=== PATIENT | male | born 1935 | race Caucasian/White ===

== ENCOUNTER → 2018-06-11 | Outpatient (REF) | payer MEDICARE, OTHER ==
[2018-06-11 07:54] LABS: URINE BILIRUBIN - DIPSTICK NEGATIVE (NEGATIVE); URINE BLOOD DIPSTICK TRACE-LYSED (NEGATIVE); URINE COLOR YELLOW; URINE GLUCOSE - DIPSTICK NEGATIVE (NEGATIVE); URINE KETONE NEGATIVE (NEGATIVE); URINE LEUK ESTERASE NEGATIVE (NEGATIVE); URINE NITRITE - DIPSTICK NEGATIVE (Negative); URINE PROTEIN - DIPSTICK NEGATIVE (NEG-TRACE); URINE SPECIFIC GRAVITY <=1.005; URINE UROBILINOGEN - DIPSTICK 0.2 E.U./dL (0.2)
[2018-06-11 07:57] LABS: HEMATOCRIT 47.8 % (39.0-50.0); HEMOGLOBIN 15.8 g/dl (14.0-18.0); IMMATURE GRANULOCYTES 0.9 % (0.0-5.0); MEAN CELL VOLUME 92.8 fL CALC (80.0-100.0); MEAN CORPUSCULAR HGB 30.7 pG CALC (26.0-32.0); MEAN CORPUSCULAR HGB CONC 33.1 g/L CALC (32.0-36.0); NEUT# 4.76 thou/uL (1.82-7.42); RED BLOOD COUNT 5.15 mill/uL (4.70-6.10); RED CELL DISTRI WIDTH 13.2 % (11.5-15.5)
[2018-06-11 08:48] LABS: ALKALINE PHOSPHATASE 72 u/l (38-126); ANION GAP 12 (6-22 (CALC)); BILIRUBIN, TOTAL 0.6 mg/dL (0.0-1.4); BUN 18 mg/dL (8-23); BUN/CREATININE RATIO 14 (12-20 (CALC)); CARBON DIOXIDE 30 mmol/l (22-30); CHLORIDE 100 mmol/l (95-108); CREATININE 1.3 mg/dL (0.7-1.3); GFR 53 ML/MIN (>=60 (CALC)); GFR FOR AFR.AMER. > 60 ML/MIN (>=60 (CALC)); POTASSIUM 3.9 mmol/l (3.5-5.1); SGOT/AST 23 u/l (19-48); SODIUM 138 mmol/l (137-146); TOTAL PROTEIN 6.7 g/dL (6.3-8.2)
== END | disposition home or self-care (01) ==
LOC: LAB 06:46
DX: Z00.00 Encounter for general adult medical examination without abnormal findings (principal); I10 Essential (primary) hypertension; G47.00 Insomnia, unspecified; N40.0 Benign prostatic hyperplasia without lower urinary tract symptoms; I70.0 Atherosclerosis of aorta; Z85.048 Personal history of other malignant neoplasm of rectum, rectosigmoid junction, and anus